=== PATIENT | female | born 1990 | race Caucasian/White ===

== ENCOUNTER 2018-03-08 13:28 | Outpatient (CLI) | payer OTHER ==
--- NOTE | 2018-03-08 15:49 | ULT ---
OBSTETRIC SONOGRAM: 03/08/18 HISTORY: Second trimester gestation. Evaluate size and dates. FINDINGS: Multiple transabdominal sonographic views of the gravid uterus show a single intrauterine gestation i n cephalic presentation. Amniotic fluid is within normal limits. Grade I placenta is anterior. spine and kidneys are intact as visualized. No intracranial abnormalities are apparent. Three vessel cord shows a normal insertion. Four chamber heart shows motion at 136 beats per minute. Measurements are as follows: Biparietal diameter 25 weeks, 5 days Head circumference 25 weeks, 2 days Abdominal circumference 25 weeks, 1 day Femur length 24 weeks, 6 days Estimated date of delivery based on today's sonogram is 06/22/18. Hadlock percentile 51%. Femur length/biparietal diameter 71. Femur length/abdominal circumference 22. Femur length/head circumference 19. Head circumference/abdominal circumference 1.13. IMPRESSION: Single viable intrauterine gestation with estimated gestational age based on today's sonogram of 24 w eeks, 6 days. POS: [facility]
== END 2018-03-08 13:29 | disposition home or self-care (01) ==
LOC: NAV ULT 13:28
PROVIDERS: ATTEND Family Medicine
DX: O09.892 Supervision of other high risk pregnancies, second trimester (principal); Z3A.24 24 weeks gestation of pregnancy
CPT/HCPCS: 76805

== ENCOUNTER 2018-06-27 22:09 | Emergency (ER) | payer OTHER | END 2018-06-27 22:53 | disposition home or self-care (01) | LOC: NAV ERS 22:09 | DX: H60.91 Unspecified otitis externa, right ear (principal); D64.9 Anemia, unspecified; Z79.899 Other long term (current) drug therapy | CPT/HCPCS: 99282 ==